=== PATIENT | female | born 1935 | race Caucasian/White ===

== ENCOUNTER 2018-07-28 14:08 | Emergency (ER) | payer MEDICARE, OTHER ==
[2018-07-28] MEDS ORDERED: Sodium Chloride 0.9% 10 ML Syringe FLUSH PRN (14:17)
[2018-07-28] MEDS ORDERED: HYDROmorphone 0.5 MG/0.5 ML Syringe IVPUSH ONE (14:19)
--- NOTE | 2018-07-28 15:30 | EDM.PDOC ---
ED HPI GENERAL MEDICAL PROBLEM - General Chief Complaint: Lower Extremity Injury/Pain Stated Complaint: [facility] Time Seen by Provider: 07/28/18 14:13 Source of Information: Reports: Patient, EMS History Limitations: Reports: No Limitations - History of Present Illness INITIAL COMMENTS - FREE TEXT/NARRATIVE: The patient presents by [facility] for left hip pain. [facility] and she tripped and fell and landed on her left hip. She did not hit her head but she is on coumadin for A-fib. She has no headache, neck pain, chest pain or abdominal pain. She has a history of A-fib, hypertension and hypothyroidism. Onset: Sudden Duration: Minutes: Location: Reports: Lower Extremity, Left (hip) Quality: Reports: Sharp Severity: Moderate Improves with: Reports: Immobilization Worsens with: Reports: Movement Context: Reports: Trauma (Fell in the parking lot) Associated Symptoms: Reports: No Other Symptoms Left Hip Pain Score (Numeric/FACES): 8 - Related Data Allergies Allergy/AdvReac Type Severity Reaction Status Date / Time Sulfa (Sulfonamide Allergy Rash Verified 07/28/18 14:17 Antibiotics) tramadol Allergy Rash Verified 07/28/18 14:17 Past Medical History HEENT History: Reports: Cataract, Impaired Vision Cardiovascular History: Reports: Afib, High Cholesterol, Hypertension Respiratory History: Reports: None Gastrointestinal History: Reports: None Genitourinary History: Reports: None Other Genitourinary History: has a hx of a small cyst of kidney that does not cause problems she thinks it is the right kidney 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: Musculoskeletal History: Reports: Arthritis Neurological History: Reports: None Psychiatric History: Reports: None Endocrine/Metabolic History: Reports: Hypothyroidism Hematologic History: Reports: None Immunologic History: Reports: None Oncologic (Cancer) History: Reports: None Dermatologic History: Reports: None - Infectious Disease History Infectious Disease History: Reports: None - Past Surgical History HEENT Surgical History: Reports: Oral Surgery Female Surgical History: Reports: Hysterectomy Musculoskeletal Surgical History: Reports: Knee Replacement Social & Family History - Family History Family Medical History: Noncontributory Endocrine/Metabolic: Reports: Diabetes, type II - Tobacco Use Smoking Status *Q: Never Smoker - Caffeine Use Caffeine Use: Reports: Coffee - Recreational Drug Use Recreational Drug Use: No Review of Systems - Review of Systems Review Of Systems: See Below Constitutional: Reports: No Symptoms Eyes: Reports: No Symptoms Ears: Reports: No Symptoms Nose: Reports: No Symptoms Mouth/Throat: Reports: No Symptoms Respiratory: Reports: No Symptoms Cardiovascular: Reports: No Symptoms GI/Abdominal: Reports: No Symptoms Genitourinary: Reports: No Symptoms Musculoskeletal: Reports: Other (Left hip pain) ED EXAM, GENERAL - Physical Exam Exam: See Below Exam Limited By: No Limitations General Appearance: Alert, No Apparent Distress Ears: Normal External Exam Nose: Normal Inspection Head: Atraumatic, Normocephalic Neck: Normal Inspection Respiratory/Chest: No Respiratory Distress, Lungs Clear, Normal Breath Sounds Cardiovascular: Regular Rate, Rhythm, No Edema, No Murmur GI/Abdominal: Soft, Non-Tender, No Organomegaly, No Mass Back Exam: Normal Inspection Extremities: Other (Pain upon palpation to the left hip with good sensation and pulses distally) Neurological: Alert, Oriented, No Motor/Sensory Deficits EKG INTERPRETATION EKG Date: 07/28/18 Time: 14:30 Rhythm: NSR Rate (Beats/Min): 77 [place]: LAD-Left [place] Deviation P-Wave: Present QRS: Normal ST-T: Normal QT: Normal CT/PQ Interval: 1st degree HB Course - Vital Signs Last Recorded V/S: Last Vital Signs Temp 98.3 F 07/28/18 14:20 Pulse 79 07/28/18 14:20 Resp 18 07/28/18 14:20 BP 171/110 H 07/28/18 14:20 Pulse Ox 100 07/28/18 14:20 - Orders/Labs/Meds Orders: Active Orders 24 hr Category Date Time Status Cardiac Monitoring [RC] . DIRECTED Care 07/28/18 14:17 Active EKG Documentation Completion [RC] STAT Care 07/28/18 14:18 Active Insert Marrero Catheter [Insert Urinary Catheter] [OM.PC] Care 07/28/18 15:30 Ordered Q24H Peripheral IV Care [RC] . DIRECTED Care 07/28/18 14:18 Active Urinary Catheter Assessment [RC] ASDIRECTED Care 07/28/18 15:27 Active Chest 1V Frontal [CR] Stat Exams 07/28/18 14:18 Taken Hip Min 2V or 3V w Pelvis Lt [CR] Stat Exams 07/28/18 14:18 Taken Phytonadione [AquaMephyton] 5 mg Med 07/28/18 15:41 Ordered Sodium Chloride 0.9% [Normal Saline] 50 ml IV NOW Sodium Chloride 0.9% [Saline Flush] Med 07/28/18 14:17 Active 10 ml FLUSH ASDIRECTED PRN Peripheral IV Insertion Adult [OM.PC] Stat Oth 07/28/18 14:17 Ordered Medication Orders Sodium Chloride (Saline Flush) 10 ml FLUSH ASDIRECTED PRN PRN Reason: Keep Vein Open Last Admin: 07/28/18 14:31 Dose: 10 ml Labs: Laboratory Tests 07/28/18 07/28/18 07/28/18 Range/Units 14:20 14:20 14:20 WBC 8.40 (3.98-10.04) K/mm3 RBC 4.59 (3.98-5.22) M/mm3 Hgb 13.9 (11.2-15.7) gm/L Hct 42.4 (34.1-44.9) % MCV 92.4 (79.4-94.8) fl MCH 30.3 (25.6-32.2) pg MCHC 32.8 (32.2-35.5) g/dl RDW Std Deviation 44.2 (36.4-46.3) fL Plt Count 249 (182-369) K/mm3 MPV 8.7 L (9.4-12.3) fl Neut % (Auto) 70.3 (34.0-71.1) % Lymph % (Auto) 20.0 (19.3-51.7) % [place] % (Auto) 8.5 (4.7-12.5) % Eos % (Auto) 0.2 L (0.7-5.8) Baso % (Auto) 0.4 (0.1-1.2) % Neut # (Auto) 5.91 (1.56-6.13) K/mm3 Lymph # (Auto) 1.68 (1.18-3.74) K/mm3 [place] # (Auto) 0.71 H (0.24-0.36) K/mm3 Eos # (Auto) 0.02 L (0.04-0.36) K/mm3 Baso # (Auto) 0.03 (0.01-0.08) K/mm3 PT 24.6 H (9.5-12.1) SECONDS INR 2.29 Sodium 139 (136-145) mEq/L Potassium 4.3 (3.5-5.1) mEq/L Chloride 103 (98-107) mEq/L Carbon Dioxide 26 (21-32) mEq/L Anion Gap 14.3 (5-15) BUN 21 H (7-18) mg/dL Creatinine 1.0 (0.55-1.02) mg/dL Est Cr Clr Drug Dosing 38.50 mL/min Estimated GFR (MDRD) 53 (>60) mL/min BUN/Creatinine Ratio 21.0 H (14-18) Glucose 162 H (83-115) mg/dL Calcium 9.6 (8.5-10.1) mg/dL Total Bilirubin 0.3 (0.2-1.0) mg/dL AST 16 (15-37) U/L ALT 22 (14-59) U/L Alkaline Phosphatase 97 (46-116) U/L Total Protein 7.5 (6.4-8.2) g/dl Albumin 3.6 (3.4-5.0) g/dl Globulin 3.9 gm/dL Albumin/Globulin Ratio 0.9 L (1-2) Meds: Medications Generic Name Dose Route Start Last Admin Trade Name Freq PRN Reason Stop Dose Admin Sodium Chloride 10 ml 07/28/18 14:17 07/28/18 14:31 Saline Flush FLUSH 10 ml ASDIRECTED PRN Administration Keep Vein Open Discontinued Medications Generic Name Dose Route Start Last Admin Trade Name Freq PRN Reason Stop Dose Admin Hydromorphone HCl 0.5 mg 07/28/18 14:19 07/28/18 14:20 Dilaudid IVPUSH 07/28/18 14:20 0.5 mg ONETIME ONE Administration - Re-Assessments/Exams Free Text/Narrative Re-Assessment/Exam: 07/28/18 15:32 I am concerned she has a fractured left hip. I ordered an IV saline lock, dilaudid 0.5mg IV, x-ray of her hip, CT of her head, EKG and labs. Her x-ray confirms she has a fracture of her left hip. Her EKG shows a NSR with no acute changes. Her CBC looks good. Her INR is therapeutic at 2.29. Her glucose is 162. We do not have ortho coverage tonight. 07/28/18 15:41 I called [facility] and talked with Dr Ahn the orthopedic surgeon sql server consultant and he accepted the patient. He did want a dose of vitamin K given so I ordered 5mg IV. Her CT shows a small meningioma which is felt to be incidental. Senescent change. No acute intracranial abnormality is identified. Her CXR shows nothing acute. Departure - Departure Time of Disposition: 15:55 Disposition: DC/Tfer to Acute Hospital 02 Condition: Fair Clinical Impression: Fall Qualifiers: Encounter type: initial encounter Qualified Code(s): W19.XXXA - Unspecified fall, initial encounter Subcapital fracture of left hip Qualifiers: Encounter type: initial encounter Fracture type: closed Qualified Code(s): S72.012A - Unspecified intracapsular fracture of left femur, initial encounter for closed fracture - Discharge Information Forms: ED Department Discharge - My Orders Last 24 Hours: My Active Orders 07/28/18 14:17 Cardiac Monitoring [RC] . DIRECTED Sodium Chloride 0.9% [Saline Flush] 10 ml FLUSH ASDIRECTED PRN Peripheral IV Insertion Adult [OM.PC] Stat 07/28/18 14:18 EKG Documentation Completion [RC] STAT Peripheral IV Care [RC] . DIRECTED Chest 1V Frontal [CR] Stat Hip Min 2V or 3V w Pelvis Lt [CR] Stat 07/28/18 15:27 Urinary Catheter Assessment [RC] ASDIRECTED 07/28/18 15:30 Insert Marrero Catheter [Insert Urinary Catheter] [OM.PC] Q24H 07/28/18 15:41 Phytonadione [AquaMephyton] 5 mg Sodium Chloride 0.9% [Normal Saline] 50 ml IV NOW - Assessment/Plan Last 24 Hours: My Active Orders 07/28/18 14:17 Cardiac Monitoring [RC] . DIRECTED Sodium Chloride 0.9% [Saline Flush] 10 ml FLUSH ASDIRECTED PRN Peripheral IV Insertion Adult [OM.PC] Stat 07/28/18 14:18 EKG Documentation Completion [RC] STAT Peripheral IV Care [RC] . DIRECTED Chest 1V Frontal [CR] Stat Hip Min 2V or 3V w Pelvis Lt [CR] Stat 07/28/18 15:27 Urinary Catheter Assessment [RC] ASDIRECTED 07/28/18 15:30 Insert Marrero Catheter [Insert Urinary Catheter] [OM.PC] Q24H 07/28/18 15:41 Phytonadione [AquaMephyton] 5 mg Sodium Chloride 0.9% [Normal Saline] 50 ml IV NOW
--- NOTE | 2018-07-28 15:31 | CT ---
Head CT Technique: Multiple axial sections through the brain were obtained. Intravenous contrast was not utilized. Comparison: No prior intracranial imaging. Findings: There is an area of increased density seen in an extra-axial location along the left side of the interhemispheric falx over the left parietal convexity. This has Hounsfield unit measurements greater than blood and most likely represents a calcified small meningioma measuring 1.2 cm. Ventricles along the basal cisterns and sulci of the convexities are moderately prominent. Minimal diminished density noted within the periventricular white matter compatible with small vessel ischemic demyelination change. No other abnormal parenchymal densities are seen. No evidence of intracranial hemorrhage. No midline shift or mass effect is seen. Bone window settings were reviewed which shows no acute calvarial abnormality. Visualized sinuses are clear. Impression: 1. Findings which are felt compatible with small meningioma as described above which is felt to be incidental. 2. Senescent change as noted above. 3. No acute intracranial abnormality is identified. Diagnostic code #2
[2018-07-28] MEDS ORDERED: Phytonadione 5 MG in Sodium Chloride 0.9% 50 ML IV ONE (15:41)
--- NOTE | 2018-07-28 15:47 | CR ---
Chest: Frontal view of the chest was obtained. Comparison: No prior chest x-ray. Heart size appears at the upper limits of normal. Tortuous thoracic aorta is seen. Lungs are clear with no acute parenchymal change. Bony structures are grossly intact. Impression: 1. Incidental findings. Nothing acute is appreciated. Diagnostic code #2
--- NOTE | 2018-07-28 15:47 | CR ---
Pelvis and left hip: AP view of the pelvis was obtained as well as cone-down AP view of the left hip and crosstable lateral view of the left hip. Displaced subcapital fracture is noted within the left hip. Bony structures are osteoporotic. No additional fracture or other abnormality is seen. Impression: 1. Displaced subcapital fracture within the left hip. Diagnostic code #3
== END 2018-07-28 16:15 ==
LOC: JD.ED 14:08
DX: S72.012A Unspecified intracapsular fracture of left femur, initial encounter for closed fracture (principal); E78.00 Pure hypercholesterolemia, unspecified; I48.91 Unspecified atrial fibrillation; I10 Essential (primary) hypertension; Z88.2 Allergy status to sulfonamides; Z88.5 Allergy status to narcotic agent; W01.0XXA Fall on same level from slipping, tripping and stumbling without subsequent striking against object, initial encounter
CPT/HCPCS: 36415; 51702; 70450; 71045; 73502; 80053; 85025; 85610; 93005; 96374; 96375; 99285; J1170; J3430; J7050; 93010; 99284

== ENCOUNTER 2020-10-26 10:01 | Emergency (ER) | payer MEDICARE, OTHER ==
--- NOTE | 2020-10-26 10:42 | EDM.PDOC ---
ED HPI GENERAL MEDICAL PROBLEM - General Chief Complaint: Cardiovascular Problem Stated Complaint: AFIB Time Seen by Provider: 10/26/20 10:31 - History of Present Illness INITIAL COMMENTS - FREE TEXT/NARRATIVE: 85-year-old female presents the emergency room concerned that her A. fib is not acting normal. Patient describes some intermittent heaviness and something just not right with her A. fib. Patient has several year history of A. fib she has had an ablation in male. She is on Coumadin and her A. fib seems to be reasonably well controlled on Rythmol. She is not had any nausea vomiting shortness of breath diaphoresis. She has not noticed worsening edema. Patient denies any other complaints at this time other than routine aches and pains. She does not seem to have a specific component of chest pain just things are not quite right. - Related Data Allergies Allergy/AdvReac Type Severity Reaction Status Date / Time Sulfa (Sulfonamide Allergy Rash Verified 10/26/20 10:19 Antibiotics) tramadol Allergy Rash Verified 10/26/20 10:19 Home Meds: Home Meds Candesartan [Atacand] 8 mg PO DAILY 10/26/20 [History] Levothyroxine [Synthroid] 88 mcg PO ACBREAKFAST 10/26/20 [History] Metoprolol Tartrate [Lopressor] 75 mg PO BID 10/26/20 [History] Propafenone [Rythmol] 150 mg PO BID 10/26/20 [History] Propafenone [Rythmol] 225 mg PO 1500 10/26/20 [History] Rosuvastatin [Crestor] 10 mg PO DAILY 10/26/20 [History] Warfarin [Coumadin] 1.25 mg PO MO 10/26/20 [History] Warfarin [Coumadin] 2.5 mg PO SUTUWETHFRSA 10/26/20 [History] amLODIPine [Norvasc] 5 mg PO DAILY 10/26/20 [History] traZODone HCl [Trazodone HCl] 100 mg PO BEDTIME 10/26/20 [History] Past Medical History HEENT History: Reports: Cataract, Impaired Vision Cardiovascular History: Reports: Afib, High Cholesterol, Hypertension Respiratory History: Reports: None Gastrointestinal History: Reports: None Genitourinary History: Reports: None Other Genitourinary History: has a hx of a small cyst of kidney that does not cause problems she thinks it is the right 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: Musculoskeletal History: Reports: Arthritis Neurological History: Reports: None Psychiatric History: Reports: None Endocrine/Metabolic History: Reports: Hypothyroidism Hematologic History: Reports: None Immunologic History: Reports: None Oncologic (Cancer) History: Reports: None Dermatologic History: Reports: None - Infectious Disease History Infectious Disease History: Reports: None - Past Surgical History HEENT Surgical History: Reports: Oral Surgery Female Surgical History: Reports: Hysterectomy Musculoskeletal Surgical History: Reports: Knee Replacement Social & Family History - Family History Family Medical History: No Pertinent Family History Endocrine/Metabolic: Reports: Diabetes, type II - Caffeine Use Caffeine Use: Reports: Coffee ED ROS GENERAL - Review of Systems Review Of Systems: See Below Constitutional: Reports: No Symptoms HEENT: Reports: No Symptoms Respiratory: Reports: No Symptoms Cardiovascular: Reports: Other (A. fib) Endocrine: Reports: No Symptoms GI/Abdominal: Reports: No Symptoms : Reports: No Symptoms Musculoskeletal: Reports: Other (Routine degenerative joint disease symptoms) Skin: Reports: No Symptoms Neurological: Reports: No Symptoms ED EXAM, GENERAL - Physical Exam Exam: See Below Exam Limited By: No Limitations General Appearance: Alert, No Apparent Distress Head: Atraumatic, Normocephalic Neck: Normal Inspection, Supple, Non-Tender, Full Range of Motion Respiratory/Chest: No Respiratory Distress, Lungs Clear, Normal Breath Sounds Cardiovascular: No Edema, No Murmur, Irregularly Irregular GI/Abdominal: Normal Bowel Sounds, Soft, Non-Tender Extremities: Normal Inspection, No Pedal Edema Neurological: Alert, Oriented, Normal Cognition #1 Interpretation EKG Date: 10/26/20 Rhythm: Other (Probable A. fib possibly flutter with variable conduction) [place]: LAD-Left [place] Deviation P-Wave: Absent QRS: Normal ST-T: Normal QT: Normal Comparison: No Change (No morphologic change however on 07/28/2018 she was in clearly sinus rhythm) EKG Interpretation Comments: Abnormal EKG Course - Vital Signs Last Recorded V/S: Last Vital Signs Temp 36.2 C 10/26/20 10:17 Pulse 79 10/26/20 10:17 Resp 18 10/26/20 10:17 BP 153/101 H 10/26/20 10:17 Pulse Ox 94 L 10/26/20 10:17 - Orders/Labs/Meds Orders: Active Orders 24 hr Category Date Time Status Chest 1V Frontal [CR] Stat Exams 10/26/20 10:56 Taken Labs: Laboratory Tests 10/26/20 10/26/20 10/26/20 Range/Units 10:15 10:15 10:15 WBC 8.25 (3.98-10.04) K/mm3 RBC 5.13 (3.98-5.22) M/mm3 Hgb 16.1 H D (11.2-15.7) gm/dl Hct 49.3 H (34.1-44.9) % MCV 96.1 H D (79.4-94.8) fl MCH 31.4 (25.6-32.2) pg MCHC 32.7 (32.2-35.5) g/dl RDW Std Deviation 45.5 (36.4-46.3) fL Plt Count 255 (182-369) K/mm3 MPV 9.4 (9.4-12.3) fl Neut % (Auto) 71.7 H (34.0-71.1) % Lymph % (Auto) 21.2 (19.3-51.7) % [place] % (Auto) 6.8 (4.7-12.5) % Eos % (Auto) 0.1 L (0.7-5.8) Baso % (Auto) 0.2 (0.1-1.2) % Neut # (Auto) 5.91 (1.56-6.13) K/mm3 Lymph # (Auto) 1.75 (1.18-3.74) K/mm3 [place] # (Auto) 0.56 H (0.24-0.36) K/mm3 Eos # (Auto) 0.01 L (0.04-0.36) K/mm3 Baso # (Auto) 0.02 (0.01-0.08) K/mm3 PT 27.7 H (9.7-12.0) SECONDS INR 2.64 APTT 42.2 H (21.7-31.4) SECONDS Sodium 144 (136-145) mEq/L Potassium 4.4 (3.5-5.1) mEq/L Chloride 106 (98-107) mEq/L Carbon Dioxide 27 (21-32) mEq/L Anion Gap 15.4 H (5-15) BUN 17 (7-18) mg/dL Creatinine 1.0 (0.55-1.02) mg/dL Est Cr Clr Drug Dosing 35.66 mL/min Estimated GFR (MDRD) 52 (>60) mL/min BUN/Creatinine Ratio 17.0 (14-18) Glucose 254 H (70-99) mg/dL Calcium 9.2 (8.5-10.1) mg/dL Magnesium 1.9 (1.8-2.4) mg/dL Total Bilirubin 0.5 (0.2-1.0) mg/dL AST 19 (15-37) U/L ALT 19 (14-59) U/L Alkaline Phosphatase 76 (46-116) U/L Troponin I < 0.017 (0.00-0.056) ng/mL Total Protein 7.7 (6.4-8.2) g/dl Albumin 3.8 (3.4-5.0) g/dl Globulin 3.9 gm/dL Albumin/Globulin Ratio 1.0 (1-2) Meds: Medications Discontinued Medications Generic Name Dose Route Start Last Admin Trade Name Davionq PRN Reason Stop Dose Admin Magnesium Oxide 800 mg 10/26/20 13:17 10/26/20 13:40 Magnesium Oxide 400 Mg Tab PO 10/26/20 13:18 800 mg ONETIME ONE Administration - Re-Assessments/Exams Free Text/Narrative Re-Assessment/Exam: 10/26/20 13:22 Chest x-ray EKG and lab work is nondiagnostic her magnesium is a little low recommended she start magnesium. I discussed this with the patient and she agrees she will follow up with her regular physician by the end of this next week. At this time the patient is actually doing better. Departure - Departure Time of Disposition: 13:24 Disposition: Home, Self-Care 01 Clinical Impression: Atrial fibrillation Instructions: Atrial Fibrillation, [id number] Referrals: Aj Jorge MD [Primary Care Provider] - Forms: ED Department Discharge Additional Instructions: Return to the emergency room with any questions problems or worsening symptoms. Start magnesium oxide 400 mg take 1 daily. Take this in the evenings. Take your thyroid medication first thing in the morning. The 2 of them taken together can decrease the absorption of the thyroid medication. Follow-up with your regular physician towards the end of this next week for recheck Sepsis Event Note (ED) - Evaluation Sepsis Screening Result: No Definite Risk - Focused Exam Vital Signs: Vital Signs Temp Pulse Resp BP Pulse Ox 10/26/20 10:17 36.2 C 79 18 153/101 H 94 L - My Orders Last 24 Hours: My Active Orders 10/26/20 10:56 Chest 1V Frontal [CR] Stat - Assessment/Plan Last 24 Hours: My Active Orders 10/26/20 10:56 Chest 1V Frontal [CR] Stat
[2020-10-26] MEDS ORDERED: Magnesium Oxide 400 MG Tab PO ONE (13:17)
--- NOTE | 2020-10-27 10:48 | CR ---
Chest: Portable view of the chest was obtained. Comparison: Prior chest x-ray of 07/28/18. Heart is enlarged. Tortuous thoracic aorta is seen. Lungs are clear with no acute parenchymal change. Slight scoliosis is noted within the spine with mild degenerative change. No acute osseous abnormality is appreciated. Impression: 1. Slight cardiomegaly. 2. Nothing acute is appreciated on portable chest x-ray. Diagnostic code #2
== END 2020-10-26 13:40 | disposition home or self-care (01) ==
LOC: JD.ED 10:01
DX: I48.91 Unspecified atrial fibrillation (principal); E78.00 Pure hypercholesterolemia, unspecified; I10 Essential (primary) hypertension; M19.90 Unspecified osteoarthritis, unspecified site; E03.9 Hypothyroidism, unspecified; Z88.2 Allergy status to sulfonamides; Z88.5 Allergy status to narcotic agent; Z79.01 Long term (current) use of anticoagulants; Z79.899 Other long term (current) drug therapy
CPT/HCPCS: 36415; 71045; 80053; 83735; 84484; 85025; 85610; 85730; 93005; 99285; A9270; 93010; 99283

== ENCOUNTER 2021-11-05 08:48 | Emergency (ER) | payer MEDICARE, OTHER ==
[2021-11-05] MEDS ORDERED: Furosemide 40 MG/4 ML VIAL IVPUSH ONE (11:13)
== END 2021-11-05 12:30 | disposition home or self-care (01) ==
LOC: JD.ED 08:48
DX: I48.91 Unspecified atrial fibrillation (principal); I11.0 Hypertensive heart disease with heart failure; I50.9 Heart failure, unspecified; Z88.2 Allergy status to sulfonamides; Z88.5 Allergy status to narcotic agent; Z79.899 Other long term (current) drug therapy; Z79.01 Long term (current) use of anticoagulants; Z90.710 Acquired absence of both cervix and uterus
CPT/HCPCS: 36415; 71045; 80053; 83735; 83880; 85025; 85610; 85730; 86140; 93005; 96374; 99285; J1940; 93010; 99284

== ENCOUNTER 2023-02-18 08:46 | Day surgery (SDC) | payer MEDICARE, OTHER ==
[2023-02-18] MEDS: Ofloxacin 0.3% Ophth Soln 5 ML Bottle EYERT SCH ×5 (07:17→09:06)
[2023-02-18] MEDS: Brimonidine 0.2% Ophth Soln 5 ML Bottle EYERT SCH ×4 (07:21→09:06)
[2023-02-18] MEDS: Phenylephrine 2.5% Ophth Soln 2 ML Bot EYERT SCH ×5 (07:26→08:45)
[2023-02-18] MEDS: Tropicamide 1% Ophth Soln 3 ML Bottle EYERT SCH ×4 (07:31→08:13)
[2023-02-18] MEDS: Tetracaine HCl/PF 0.5% 4 ML Bottle EYEBOTH SCH ×4 (08:37→08:52)
[~2023-02-18 08:46] MED LIST: Lidocaine 1% PF 2 ML SDV INJECT SCH; Polymyxin B/Trimethoprim 10 ML Bottle EYERT SCH
[2023-02-18] MEDS: Cefuroxime 10 MG/ML SYRINGE EYERT SCH ×3 (08:54→09:06)
[2023-02-18] MEDS: Pilocarpine 4% Ophth Soln 15 ML Bot EYERT SCH ×2 (08:54→09:06)
== END 2023-02-18 09:16 | disposition home or self-care (01) ==
LOC: JD.SDS 08:46
PROVIDERS: ATTEND Ophthalmology
DX: H25.11 Age-related nuclear cataract, right eye (principal); H40.053 Ocular hypertension, bilateral; H35.1 Retinopathy of prematurity; H35.363 Drusen (degenerative) of macula, bilateral; H16.103 Unspecified superficial keratitis, bilateral; H16.223 Keratoconjunctivitis sicca, not specified as Sjogren's, bilateral; H40.033 Anatomical narrow angle, bilateral; E03.9 Hypothyroidism, unspecified; E11.36 Type 2 diabetes mellitus with diabetic cataract; E78.00 Pure hypercholesterolemia, unspecified; I48.91 Unspecified atrial fibrillation; I10 Essential (primary) hypertension; Z79.899 Other long term (current) drug therapy; Z79.890 Hormone replacement therapy; Z79.01 Long term (current) use of anticoagulants; Z88.2 Allergy status to sulfonamides; Z88.5 Allergy status to narcotic agent
CPT/HCPCS: 66984; A9270; J0697; V2632; 00142; 99100; J3490

== ENCOUNTER 2023-03-08 07:30 | Day surgery (SDC) | payer MEDICARE, OTHER ==
[~2023-03-08 07:30] MED LIST changes: +Cefuroxime 10 MG/ML SYRINGE EYERT SCH; +Pilocarpine 4% Ophth Soln 15 ML Bot EYERT SCH; -Polymyxin B/Trimethoprim 10 ML Bottle EYERT SCH
[2023-03-08] MEDS: Ofloxacin 0.3% Ophth Soln 5 ML Bottle EYERT SCH ×3 (07:50→09:38)
[2023-03-08] MEDS: Brimonidine 0.2% Ophth Soln 5 ML Bottle EYERT SCH ×3 (07:55→09:38)
[2023-03-08] MEDS: Phenylephrine 2.5% Ophth Soln 2 ML Bot EYERT SCH ×5 (08:00→09:14)
[2023-03-08] MEDS: Tropicamide 1% Ophth Soln 3 ML Bottle EYERT SCH ×4 (08:05→08:49)
[2023-03-08] MEDS: Tetracaine HCl/PF 0.5% 4 ML Bottle EYEBOTH SCH ×3 (08:59→09:21)
== END 2023-03-08 09:50 | disposition home or self-care (01) ==
LOC: JD.SDS 07:30
PROVIDERS: ATTEND Ophthalmology
DX: H25.812 Combined forms of age-related cataract, left eye (principal); H40.053 Ocular hypertension, bilateral; H35.3131 Nonexudative age-related macular degeneration, bilateral, early dry stage; H40.032 Anatomical narrow angle, left eye; H11.823 Conjunctivochalasis, bilateral; E11.9 Type 2 diabetes mellitus without complications; E78.00 Pure hypercholesterolemia, unspecified; I11.9 Hypertensive heart disease without heart failure; E03.9 Hypothyroidism, unspecified; I48.20 Chronic atrial fibrillation, unspecified; Z96.1 Presence of intraocular lens; Z79.890 Hormone replacement therapy; Z79.01 Long term (current) use of anticoagulants; Z79.899 Other long term (current) drug therapy; Z88.2 Allergy status to sulfonamides; Z88.8 Allergy status to other drugs, medicaments and biological substances
CPT/HCPCS: 66984; A9270; J0697; V2632; J3490